=== PATIENT | male | born 1985 | race Two or more races ===

== ENCOUNTER → 2019-01-23 | Day surgery (SDC) | payer OTHER ==
[~2019-01-23] MED LIST: CEFTRIAXONE SOD 1 GM/NS 50 ML 50 ML IV ONE; DEXAMETHASONE SOD PHOS INJ 4 MG/ML VIAL ONE; FENTANYL CITRATE/PF 100MCG/2 ML INJ ONE; IOPAMIDOL 610MG/1ML 300 MG/ML VIAL IV ONE; LIDOCAINE HCL 2% LOCAL INJ 5 ML SDV VIAL INJ ONE; MIDAZOLAM HCL 2 MG/2 ML VIAL ONE; ONDANSETRON HCL INJ 2MG/ML 2ML 2 MG/ML VIAL ONE; PROPOFOL IV EMULSION 10 MG/ML 20 ML VIAL ONE; SEVOFLURANE INHAL SOLN 250 ML PEN BTL ONE
--- NOTE | 2019-01-23 13:19 | Diagnostic Imaging Report ---
Exam: KUB - 2 views Clinical History: Pre-op for renal stone. Comparison: None. Findings: Bowel gas partially obscures visualization of the kidneys. There is a 9 mm calcification adjacent to the right L3 transverse process. There is a 3 mm calcification projecting over the left mid kidney and a 3 mm calcification projecting over the left lower kidney. Nonobstructive bowel gas pattern. No acute osseous abnormality. Impression: A 9 mm calcification adjacent to the right L3 transverse process could represent a ureteral stone in the appropriate clinical setting. Calcifications measuring 3 mm overlying the left mid and lower kidney may represent stones. Signed by: Dr. Herlinda Cramer MD on 01/23/2019 1:16 PM
[2019-01-23 14:40] VITALS: BP 135/93
--- NOTE | 2019-01-23 23:30 | Operative Report ---
DATE OF PROCEDURE: 01/23/2019 SURGEON: Juwan Godinez MD PREOPERATIVE DIAGNOSIS: Right ureteral calculus. POSTOPERATIVE DIAGNOSIS: Right ureteral calculus. PROCEDURES: 1. Staged right-sided shock-wave lithotripsy. 2. Supervision of fluoroscopy. ANESTHESIA: General. ESTIMATED BLOOD LOSS: Minimal. COMPLICATIONS: None. INDICATIONS: Mr. Drew is a very pleasant 27-[id number]-uyh-male with a history of right ureteral calculus. He and I had a long discussion regarding the alternatives, the risks and benefits, including doing nothing, stent placement, shock wave lithotripsy, percutaneous surgery, open surgery. The patient understands the options, alternatives, the risks and benefits, and elected to proceed with shock-wave lithotripsy. Should this fail will stent at later time. he had elected to proceed. PROCEDURE IN DETAIL: After informed consent was obtained, the patient was taken to the operating suite, placed supine on the operating table, underwent general anesthesia by the service. The stone was localized in the xyz plane. A total 3000 shocks were delivered to the stone. The patient tolerated the procedure well and was transported to the recovery room in excellent condition. No complications noted Juwan Godinez MD ES/MODL /[id number] MTDD
== END | disposition home or self-care (01) ==
LOC: OR 11:26
PROVIDERS: ATTEND Urology
DX: N20.1 Calculus of ureter (principal); N13.30 Unspecified hydronephrosis; I10 Essential (primary) hypertension
CPT/HCPCS: 50590; 74018; J0696; J1100; J2001; J2250; J2405; J2704

== ENCOUNTER 2019-02-10 22:48 | Inpatient (IN) | payer OTHER ==
[~2019-02-10] VITALS: Ht 167.6 cm; Wt 82.6 kg
--- NOTE | 2019-02-10 22:13 | NUR ---
Received report from Mesha at [facility]. #[phone].
[2019-02-10 22:38] VITALS: BP 121/71
--- NOTE | 2019-02-10 22:38 | NUR ---
Patient arrived to floor via stretcher.
[2019-02-10] MEDS ORDERED: NALOXONE HCL INJ 0.4 MG/ML AMP IV PRN (23:00)
[2019-02-10] MEDS ORDERED: MORPHINE SULFATE 1 MG/ML 30ML PCA IV PRN (23:00)
[2019-02-10] MEDS ORDERED: SODIUM CHLORIDE 0.9% 500ML 500 ML ONE (23:51)
--- NOTE | 2019-02-11 | NUR ---
GARDE MANAGER intact. Patient states no pain. IV to right AC. Continue monitor.
--- NOTE | 2019-02-11 00:20 | NUR ---
Patient started on [employer]CRET[employer] morphine. Bolus of 3mg given and patient tolerated well for pain level of 4 to abdomin.
[2019-02-11 01:51] VITALS: BP 121/71
[2019-02-11 04:48] VITALS: BP 117/63
--- NOTE | 2019-02-11 05:37 | NUR ---
Patient resting quitly with no c/o at this time.
--- NOTE | 2019-02-11 07:06 | NUR ---
Patient c/o nausea. Nothing ordered for nausea. Called Dr Godinez to get orders. Dr refused nausea med due to patients kidney status. Informed patient that Dr will be in to see him soon.
[2019-02-11 08:08] VITALS: BP 111/74
[2019-02-11 08:39] LABS: BASOPHILS # (AUTO) 0.1 (0.0-0.1); BASOPHILS % 0.4 % (0.0-1.0); EOSINOPHILS % 0.3 % (0.0-6.0); HEMATOCRIT 37.3 % (38.2-49.6); HEMOGLOBIN 12.6 g/dL (14.0-18.0); LYMPHOCYTES # (AUTO) 1.8 (1.0-3.2); LYMPHOCYTES % 14.4 % (18.0-39.1); MEAN CORPUSCULAR HEMOGLOBIN 29.9 pg (28-32); MEAN CORPUSCULAR HGB CONC 33.8 g/dL (31-35); MEAN CORPUSCULAR VOLUME 88.4 fL (81-99); MONOCYTES % 7.4 % (4.4-11.3); NEUTROPHILS # (AUTO) 9.9 (2.1-6.9); NEUTROPHILS % 77.2 % (38.7-80.0); PLATELET COUNT 337 x10e3/uL (140-360); RED BLOOD COUNT 4.22 x10e6/uL (4.3-5.7); RED CELL DISTRIBUTION WIDTH 12.4 % (11.7-14.4)
[2019-02-11 08:54] LABS: ALANINE AMINOTRANSFERASE 30 IU/L (0-55); ALBUMIN 3.6 g/dL (3.5-5.0); ALBUMIN/GLOBULIN RATIO 1.1 (0.8-2.0); ALKALINE PHOSPHATASE 60 IU/L (40-150); ANION GAP 11.5 mmol/L (8-16); BLOOD UREA NITROGEN 17 mg/dL (7-26); BUN/CREATININE RATIO 14 (6-25); CALCIUM 8.7 mg/dL (8.4-10.2); CARBON DIOXIDE 27 mmol/L (22-29); CHLORIDE 107 mmol/L (98-107); CREATININE, SERUM 1.19 mg/dL (0.72-1.25); EST GLOMERULAR FILTRATION RATE > 60 ML/MIN (60-); GLUCOSE 103 mg/dL (74-118); POTASSIUM 4.5 mmol/L (3.5-5.1); SODIUM 141 mmol/L (136-145)
[2019-02-11] MEDS ORDERED: IOPAMIDOL 610MG/1ML 300 MG/ML VIAL IV ONE (11:16)
[2019-02-11] MEDS ORDERED: MIDAZOLAM HCL 2 MG/2 ML VIAL ONE (14:55)
[2019-02-11] MEDS ORDERED: FENTANYL CITRATE/PF 100MCG/2 ML INJ ONE (14:55)
[2019-02-11 16:29] VITALS: BP 138/83
[2019-02-11] MEDS ORDERED: ACETAMINOPHEN/CODEINE 300MG - 30MG TAB PO PRN (17:15)
[2019-02-11] MEDS: CEFTRIAXONE SOD 1 GM/NS 50 ML 50 ML IV SCH (17:39)
[2019-02-11] MEDS ORDERED: SEVOFLURANE INHAL SOLN 250 ML PEN BTL ONE (18:10)
[2019-02-11] MEDS ORDERED: METOCLOPRAMIDE HCL 10 MG/2ML VIAL ONE (18:10)
[2019-02-11] MEDS ORDERED: LIDOCAINE HCL 2% LOCAL INJ 5 ML SDV VIAL INJ ONE (18:10)
[2019-02-11] MEDS ORDERED: ONDANSETRON HCL INJ 2MG/ML 2ML 2 MG/ML VIAL ONE (18:10)
[2019-02-11] MEDS ORDERED: DEXAMETHASONE SOD PHOS INJ 4 MG/ML VIAL ONE (18:10)
[2019-02-11] MEDS ORDERED: CEFTRIAXONE SOD 1 GM VIAL ONE (18:10)
[2019-02-11] MEDS ORDERED: PROPOFOL IV EMULSION 10 MG/ML 20 ML VIAL ONE (18:10)
[2019-02-11] MEDS ORDERED: FAMOTIDINE 20 MG/2 ML VIAL IV ONE (18:10)
[2019-02-11] MEDS ORDERED: MORPHINE SULFATE INJ 4 MG/ML INJ 1ML IV ONE (19:35)
[2019-02-11 20:32] VITALS: BP 137/91
[2019-02-11 21:00] VITALS: BP 137/91
--- NOTE | 2019-02-11 21:00 | NUR ---
ASSESSMENT DONE.AMBULATES.VOIDED.BLOODY URINE NOTED.RESTING COMFORTABLY IN THE BED.PHONE AND CALL LIGHT WITHIN REACH.
[2019-02-12 00:23] VITALS: BP 124/80
--- NOTE | 2019-02-12 03:01 | NUR ---
RESTING QUIETLY IN THE BED.NO PAIN VOICED.
[2019-02-12 04:00] VITALS: BP 109/60
[2019-02-12] MEDS: CEFTRIAXONE SOD 1 GM/NS 50 ML 50 ML IV SCH (05:35)
--- NOTE | 2019-02-12 06:32 | NUR ---
DARK RICKY COLORED URINE VOIDED.NO PAIN VOICED.
--- NOTE | 2019-02-12 06:59 | NUR ---
REPORT GIVEN TO THE ONCOMING RN.WALKING ROUNDS DONE.STABLE CONDITION.
--- NOTE | 2019-02-12 07:25 | NUR ---
Rcvd patient in report this am. Patient is asleep in bed at this time. No s/s of distress noted
[2019-02-12 07:54] VITALS: BP 152/97
--- NOTE | 2019-02-12 08:35 | NUR ---
IV removed at this time. Tip in tact. Pressure dressing applied.
[2019-02-12] MEDS ORDERED: CEFUROXIME250 MG PO (08:36)
[2019-02-12] MEDS ORDERED: TYLENOL WITH C1 EACH PO (08:37)
[2019-02-12 08:48] VITALS: BP 152/97
--- NOTE | 2019-02-12 09:07 | NUR ---
Patient is AAox3. patient is post op stent placement for kidney stones. No c/o pain at this time. Lung martin clear to auscultation. Bowel sounds present x4. Ambulates on his own with no s/s of distress noted
--- NOTE | 2019-02-12 09:25 | NUR ---
Patient discharged from facility to home. Patient assisted out via staff. Refused wheelchair assistance but staff ambulated with him. Reviewed discharge paperwork, follow up appts and RX's given.
--- NOTE | 2019-02-12 16:32 | Discharge Summary ---
ADMITTING DIAGNOSIS: Ureterolithiasis. DISCHARGE DIAGNOSIS: Ureterolithiasis. PROCEDURES: Cystoscopy, retrograde pyelogram, stent placement. HOSPITAL COURSE: The patient was admitted to the hospital. History and physical examination consisting of right renal colic, was found to have an obstructing 1 cm right ureteral stone. He underwent stent placement for postoperative pain control. Concomitant factors were leukocytosis, hypotension, hypertension, colic, hematuria. DISPOSITION: He is discharged to home on a regular diet. Light activity. DISCHARGE MEDICATIONS: Per reconciliation sheet. FOLLOWUP: He will follow up in two weeks for definitive management of his ureteral calculi. MD SHEILA De/MODL /[id number]
--- NOTE | 2019-02-12 23:44 | Operative Report ---
DATE OF PROCEDURE: 02/11/2019 SURGEON: Juwan Godinez MD PREOPERATIVE DIAGNOSES: 1. Right-sided hydronephrosis. 2. Microscopic hematuria. POSTOPERATIVE DIAGNOSES: 1. Right-sided hydronephrosis. 2. Microscopic hematuria. PROCEDURES: 1. Cystourethroscopy with left ureteral catheterization and left retrograde pyelogram (separate procedure for diagnosis of microscopic hematuria). 2. Cystourethroscopy with insertion of right indwelling stent (entirely separate procedure) for right hydronephrosis. 3. Supervision on fluoroscopy. 4. Interpretation of retrograde pyelography. ANESTHESIA: General. ESTIMATED BLOOD LOSS: Minimal. COMPLICATION: None. INDICATION: Mr. Drew is a very pleasant 33-year-old male with a 1 cm obstructing stone. I had a long discussion about alternatives, risks, and benefits, including doing nothing, stent placement, percutaneous surgery, and open surgery. He voiced understanding of the options, the alternatives, the risks, and benefits and elected to proceed. He voiced explicit understanding that stent is a temporary indwelling device and it must be removed Failure to do so could lead to encrustation, infection, inflamation, atrophy loss of kidney renal failure even . He elects to proceed. PROCEDURE IN DETAIL: After informed consent was obtained, the patient was taken to the operative suite. He was placed supine on the operating table and he underwent general anesthesia by Anesthesia Service. Placed in dorsal lithotomy position. Sterilely prepped and draped in a standard fashion for cystoscopy. A 21-Surinamese cystoscope inserted per urethra. Normal urethra was noted. UOs catheterized with a 5-Surinamese open-ended catheter. Retrograde pyelogram was performed, revealing 1 cm distal ureteral calculus on the right side. Normal left retrograde pyelogram. Ureteral stent was deployed in the right with coil in the renal pelvis and a coil in the bladder. The patient's bladder was drained. He was awakened from anesthesia and transported to the recovery room in excellent condition. Supervision of fluoroscopy, interpretation of retrograde pyelography: I was present for the entire procedure and I supervised the use of fluoroscopy as no radiologist was present. Attention was turned towards the left and right ureters, which were catheterized with a 5-Surinamese open-ended catheter On the right of over 1 cm distal ureteral calculus with proximal hydronephrosis. Left normal. Postoperative views in the right side revealed stent in adequate position. MD SHEILA De/XAVIER /[id number] [place]
== END 2019-02-12 09:25 | disposition home or self-care (01) | DRG 661 ==
LOC: MED/SURG 22:48
PROVIDERS: ADMIT Urology; ATTEND Urology
PROC: 0T778ZZ Dilation of Left Ureter, Via Natural or Artificial Opening Endoscopic (ICD-10-PCS; principal; 2019-02-12)
PROC: 0T778ZZ Dilation of Left Ureter, Via Natural or Artificial Opening Endoscopic (ICD-10-PCS; 2019-02-12)
PROC: BT141ZZ Fluoroscopy of Kidneys, Ureters and Bladder using Low Osmolar Contrast (ICD-10-PCS; 2019-02-12)
DX: N13.2 Hydronephrosis with renal and ureteral calculous obstruction (principal); D72.829 Elevated white blood cell count, unspecified; I10 Essential (primary) hypertension; R31.29 Other microscopic hematuria; I95.9 Hypotension, unspecified; N23 Unspecified renal colic
CPT/HCPCS: 36415; 74420; 80053; 85025; 87086; C1758; C2617; J0696; J1100; J2001; J2250; J2270; J2405; J2765; J7040

== ENCOUNTER → 2019-02-27 | Day surgery (SDC) | payer OTHER ==
[~2019-02-27] MED LIST changes: +CEFUROXIME250 MG PO; +TYLENOL WITH C1 EACH PO
--- OUTSIDE RECORDS SUMMARY | 2019-02-27 05:19 | XMS REPORT ---
Author Author [facility] Address Unknown Phone Unavailable Care Team Providers Care Arranger Assembler Name Role Phone CHAVA DURÁN Unavailable Unavailable Problems This patient has no known problems. Allergies, Adverse Reactions, Alerts This patient has no known allergies or adverse reactions. Medications This patient has no known medications. Results Test Description Test Time Test Comments Text Results Atomic Results Result Comments ABDOMEN-1VIEW (KUB) 2019-01-23 13:12:00 [place] [address] Patient Name: BRANDON GERARD MR #: [id number] : 1985 Age/Sex: 33/M Req #: [id number] Adm Physician: Ordered by: CHAVA DURÁN MD Report #: [id number] Location: OR Room/Bed: Procedure: [id number] DX/ABDOMEN-1VIEW (KUB) Exam Date: 01/23/19 Exam Time: 1215 REPORT STATUS: Signed Exam: KUB - 2 views Clinical History: Pre-op for r enal stone. Comparison: None. Findings: Bowel gas partially obscures visualization of the kidneys. There is a 9 mm calcification adjacent to the right L3 transverse process. There is a 3 mm calcification projecting over the left mid kidney and a 3 mm calcification projecting over the left lower kidney. Nonobstructive bowel gas pattern. No acute osseous abnormality. Impression: A 9 mm calcification adjacent to the right L3 transverse process could represent a ureteral stone in the appropriate clinical setting. Calcifications measuring 3 mm overlying the left mid and lower kidney may represent stones. Signed by: Dr. Shmuel Cheng MD on 01/23/2019 1:16 PM Dictated By: SHMUEL CHENG MD 1315 Transcribed By: SHARLA on 01/23/19 1316 COPY TO: CHAVA DURÁN MD
--- OUTSIDE RECORDS SUMMARY | 2019-02-27 05:19 | XMS REPORT | Clinical Summary ---
Author Author [facility] Address Unknown Phone Unavailable Care Team Providers Care Law Instructor Name Role Phone System, Provider Not In MD PCP Unavailable Allergies No Known Allergies Medications End Date Status Medication Sig Dispensed Refills Start Date 10/31/2018 acetaminophen-codeine Take 1-2 15 tablet 0 (TYLENOL WITH CODEINE #3) tablets by 8 300-30 mg per tablet mouth every 6 (six) hours as needed for moderate pain for up to 3 days. 11/27/2018 ondansetron ODT (ZOFRAN Take 1 tablet 15 tablet 0 ODT) 4 MG disintegrating (4 mg total) 8 tablet by mouth every 8 (eight) hours as needed for nausea or vomiting for up to 30 days. 11/04/2018 ciprofloxacin (CIPRO) 500 Take 1 tablet 14 tablet 0 MG tablet (500 mg 8 total) by mouth 2 (two) times a day for 7 days. 11/04/2018 tamsulosin (FLOMAX) 0.4 Take 1 7 capsule 0 mg capsule capsule (0.4 8 mg total) by mouth daily for 7 days. Active Problems Not on file Encounters Care Team Description Date Type Specialty Jakob Matt MD Teter, Alondra Funes PA-C Nephrolithiasis (Primary Dx) 10/28/2018 Emergency Emergency Medicine 10/28/2018 Travel after 02/26/2018 Social History Date Tobacco Use Types Packs/Day Years Used Light Tobacco Smoker Cigarettes Smokeless Tobacco: Never Used Comments: "ocassional" Alcohol Use Drinks/Week oz/Week Comments No Sex Assigned at Date Recorded Not on file Industry Job Start Date Occupation Not on file Not on file Not on file Travel End Travel History Travel Start No recent travel history available. Last Filed Vital Signs Time Taken Vital Sign Reading 10/28/2018 11:50 AM MEDICAL REFERRAL COORDINATOR Blood Pressure 134/83 10/28/2018 11:50 AM MEDICAL REFERRAL COORDINATOR Pulse 68 10/28/2018 11:50 AM MEDICAL REFERRAL COORDINATOR Temperature 36.7 C (98 F) 10/28/2018 11:50 AM MEDICAL REFERRAL COORDINATOR Respiratory Rate 15 10/28/2018 11:50 AM MEDICAL REFERRAL COORDINATOR Oxygen Saturation 98% - Inhaled Oxygen - Concentration 10/28/2018 10:23 AM MEDICAL REFERRAL COORDINATOR Weight 78.5 kg (173 lb) 10/28/2018 10:23 AM MEDICAL REFERRAL COORDINATOR Height 167.6 cm (5' 6") 10/28/2018 10:23 AM MEDICAL REFERRAL COORDINATOR Body Mass Index 27.92 Plan of Treatment Health Maintenance Due Date Last Done Comments INFLUENZA VACCINE 06/27/2018 Procedures Comments Procedure Name Priority Date/Time Associated Diagnosis CT RENAL STONE PROTOCOL STAT 10/28/2018 10:48 AM MEDICAL REFERRAL COORDINATOR ESTIMATED GFR STAT 10/28/2018 10:29 AM MEDICAL REFERRAL COORDINATOR URINALYSIS SCREEN AND STAT 10/28/2018 MICROSCOPY, WITH REFLEX 10:29 AM MEDICAL REFERRAL COORDINATOR TO CULTURE COMPREHENSIVE METABOLIC STAT 10/28/2018 PANEL 10:29 AM MEDICAL REFERRAL COORDINATOR HC COMPLETE BLD COUNT STAT 10/28/2018 W/AUTO DIFF 10:29 AM MEDICAL REFERRAL COORDINATOR GRAM STAIN STAT 10/28/2018 10:29 AM MEDICAL REFERRAL COORDINATOR URINE CULTURE STAT 10/28/2018 10:29 AM MEDICAL REFERRAL COORDINATOR after 02/26/2018 Results * CT Renal Stone Protocol (10/28/2018 10:48 AM MEDICAL REFERRAL COORDINATOR) Narrative Performed At EXAMINATION:CT RENAL STONE PROTOCOL [facility] CLINICAL HISTORY:Flank painstone disease suspected TECHNIQUE:Multiple axial CT images of the abdomen and pelvis are obtained without the use of intravenous contrast. Coronal and sagittal 3-D reconstructions are obtained. CT scans are performed using radiation dose reduction techniques.Technical factors are evaluated and adjusted to ensure appropriate moderation of exposure.Automated dose management technology is applied to adjust radiation exposure while achieving a diagnostic quality image. COMPARISON:May 2015 FINDINGS: Abdomen: The evaluation of the solid organs is limited without the use of intravenous contrast. The visualized lower lung zones are clear. The gallbladder does not have any wall thickening. There is no pericholecystic fluid.. The CT appearance of the liver, spleen, pancreas and adrenal glands is unremarkable . The abdominal aorta has no aneurysmal dilatation. There is no retroperitoneal adenopathy. The left kidney does not have any stones or any hydronephrosis. The right kidney demonstrates moderate hydronephrosis. Perinephric stranding is present. There are no stones seen within the right kidney. There is a 8 mm stone seen within the proximal right ureter. CT Pelvis: There is no evidence of any pneumoperitoneum. The appendix is unremarkable. The evaluation of the GI tract is limited without any oral contrast. The colon does not have any focal inflammatory change. There is no bowel wall thickening. The bladder does not demonstrate any masses. IMPRESSION: 1. There is a 8 mm stone seen within the proximal right ureter. 2. The right kidney has moderate hydronephrosis. There are no stones seen within the right kidney. 3. The left kidney does not have any stones or any hydronephrosis. 4. The appendix is unremarkable. 5. There is no bowel obstruction nor any dilated loops of bowel. [id number] Procedure Note Hm Interface, Radiology Results Incoming - 10/28/2018 11:15 AM MEDICAL REFERRAL COORDINATOR EXAMINATION: CT RENAL STONE PROTOCOL CLINICAL HISTORY: Flank pain stone disease suspected TECHNIQUE: Multiple axial CT images of the abdomen and pelvis are obtained without the use of intravenous contrast. Coronal and sagittal 3-D reconstructions are obtained. CT scans are performed using radiation dose reduction techniques. Technical factors are evaluated and adjusted to ensure appropriate moderation of exposure. Automated dose management technology is applied to adjust radiation exposure while achieving a diagnostic quality image. COMPARISON: May 2015 FINDINGS: Abdomen: The evaluation of the solid organs is limited without the use of intravenous contrast. The visualized lower lung zones are clear. The gallbladder does not have any wall thickening. There is no pericholecystic fluid.. The CT appearance of the liver, spleen, pancreas and adrenal glands is unremarkable . The abdominal aorta has no aneurysmal dilatation. There is no retroperitoneal adenopathy. The left kidney does not have any stones or any hydronephrosis. The right kidney demonstrates moderate hydronephrosis. Perinephric stranding is present. There are no stones seen within the right kidney. There is a 8 mm stone seen within the proximal right ureter. CT Pelvis: There is no evidence of any pneumoperitoneum. The appendix is unremarkable. The evaluation of the GI tract is limited without any oral contrast. The colon does not have any focal inflammatory change. There is no bowel wall thickening. The bladder does not demonstrate any masses. IMPRESSION: 1. There is a 8 mm stone seen within the proximal right ureter. 2. The right kidney has moderate hydronephrosis. There are no stones seen within the right kidney. 3. The left kidney does not have any stones or any hydronephrosis. 4. The appendix is unremarkable. 5. There is no bowel obstruction nor any dilated loops of bowel. [id number] Performing Organization Address City/State/Zipcode Phone Number [address] [address] [place] [address] * Urinalysis screen and microscopy, with reflex to culture (10/28/2018 10:29 AM MEDICAL REFERRAL COORDINATOR) Specimen site Catheterized [facility] Color, UA Yellow [facility] Appearance, UA Cloudy [facility] Specific gravity, UA 1.024 1.001 - 1.035 [facility] pH, UA 7.0 5.0 - 8.5 [facility] Protein, UA 1+ (A) Negative [facility] Glucose, UA Negative Negative [facility] Ketones, UA Negative Negative [facility] Bilirubin, UA Negative Negative [facility] Blood, UA Small (A) Negative [facility] Nitrite, UA Negative Negative [facility] Urobilinogen, UA Negative <2.0 [facility] Leukocyte esterase, UA Negative Negative [facility] Epithelial cells, UA Few /HPF [facility] WBC, UA 6-10 (H) 0 - 1 /HPF [facility] RBC, UA 11-20 (H) 0 - 5 /HPF [facility] Bacteria, UA None seen None seen [facility] Yeast, UA None seen [facility] Yeast with pseudohyphae, None seen [facility] Amorphous crystals Few [facility] Hyaline casts, UA 3-5 /LPF [facility] Specimen Urine Performing Organization Address [facility] Phone Number [facility] DEPARTMENT [address] [place] [address] PATHOLOGY AND GENOMIC MEDICINE [address] * Estimated GFR (10/28/2018 10:29 AM MEDICAL REFERRAL COORDINATOR) Estimated GFR 86 mL/min/1.73 m2 [facility] Comment: [facility] CatergoryUnitsInte rpretation G1 >=90 Normal or high G2 60-89Mildly decreased [id number] Mildly to moderately decreased [id number] Moderately to severely decreased G4 15-29Severely decreased G5 <15Kidney failure The eGFR was calculated using the Chronic Kidney Disease Epidemiology Collaboration (CKD-EPI) equation. Interpretation is based on recommendations of the National Kidney Foundation-Kidney Disease Outcomes Quality Initiative (NKF-KDOQI) published in 2014. Specimen Plasma specimen Performing Organization Address [facility] Phone Number [address] [place] [address] PATHOLOGY AND GENOMIC MEDICINE [address] * Gram stain (10/28/2018 10:29 AM MEDICAL REFERRAL COORDINATOR) Gram stain result No WBC's or organisms seen. [facility] [place] Comment: HOSPITAL Specimen Information Specimen Source: Urine Specimen Site: Catheterized Specimen Urine - Catheterized Performing Organization Address [facility]/Zipcode Phone Number [facility] [place] [address] PATHOLOGY AND GENOMIC MEDICINE [address] * CBC with platelet and differential (10/28/2018 10:29 AM MEDICAL REFERRAL COORDINATOR) WBC 13.89 (H) 4.50 - 11.00 k/uL [facility] RBC 4.85 4.40 - 6.00 m/uL [facility] HGB 14.3 14.0 - 18.0 g/dL [facility] HCT 42.7 41.0 - 51.0 % [facility] MCV 88.0 82.0 - 100.0 fL [facility] MCH 29.5 27.0 - 34.0 pg [facility] MCHC 33.5 31.0 - 37.0 g/dL [facility] RDW - SD 38.5 37.0 - 55.0 fL [facility] MPV 8.7 (L) 8.8 - 13.2 fL [facility] Platelet count 350 150 - 400 k/uL [facility] Nucleated RBC 0.00 /100 WBC [facility] Neutrophils 70.2 (H) 39.0 - 69.0 % [facility] Lymphocytes 21.6 (L) 25.0 - 45.0 % [facility] Monocytes 6.7 0.0 - 10.0 % [facility] Eosinophils 0.8 0.0 - 5.0 % [facility] Basophils 0.4 0.0 - 1.0 % [facility] Specimen Blood Performing Organization Address City/[facility] Phone Number [facility] DEPARTMENT [id number] [place] [address] [place] [address] PATHOLOGY AND GENOMIC MEDICINE [address] * Urine culture (10/28/2018 10:29 AM MEDICAL REFERRAL COORDINATOR) Urine culture isolate Mixed lilo <=10-3 col/cc [facility] Comment: HOSPITAL Specimen Information Specimen Source: Urine Specimen Site: Catheterized Specimen Urine - Catheterized Performing Organization Address City/[facility] Phone Number [facility] [place] [address] PATHOLOGY AND GENOMIC MEDICINE [address] * Comprehensive metabolic panel (10/28/2018 10:29 AM MEDICAL REFERRAL COORDINATOR) Sodium 138 135 - 148 mEq/L [facility] Potassium 4.2 3.5 - 5.0 mEq/L [facility] Chloride 102 98 - 112 mEq/L [facility] CO2 24 24 - 31 mEq/L [facility] Anion gap 12@ANIO 7 - 15 mEq/L [facility] BUN 24 (H) 6 - 20 mg/dL [facility] Creatinine 1.10 0.70 - 1.20 mg/dL [facility] Glucose 108 (H) 65 - 99 mg/dL [facility] Calcium 10.0 8.3 - 10.2 mg/dL [facility] Protein 8.4 (H) 6.3 - 8.3 g/dL [facility] Comment: [facility] Mentcle 4.6-7.0 g/dL 1 week 4.4-7.6 g/dL 7 months-1year 5.1-7.3 g/dL 1-2 years5.6-7 .5 g/dL >3 years6.0-8 .0 g/dL 18-150 6.3-8.3 g/dL Albumin 4.9 3.5 - 5.0 g/dL [facility] A/G ratio 1.4 0.7 - 3.8 [facility] Alkaline phosphatase 72 40 - 129 U/L [facility] AST 20 10 - 50 U/L [facility] ALT 18 5 - 50 U/L [facility] Total bilirubin 0.7 0.0 - 1.2 mg/dL [facility] Specimen Plasma specimen Performing Organization Address City/State/Zipcode Phone Number [facility] DEPARTMENT [address] [place] [address] PATHOLOGY AND GENOMIC MEDICINE [facility] [address] [place] [id number] [facility] after 02/26/2018 Advance Directives Patient has advance care planning documents on file. For more information, jahaira woody contact: D[facility] [place] [address] [place] [address]
[2019-02-27 08:20] VITALS: BP 121/85
--- NOTE | 2019-02-28 15:24 | Operative Report ---
DATE OF PROCEDURE: 02/27/2019 SURGEON: Juwan Godinez MD PREOPERATIVE DIAGNOSES: 1. Right ureteral calculus. 2. Right hydronephrosis. 3. Right indwelling stent. POSTOPERATIVE DIAGNOSES: 1. Right ureteral calculus. 2. Right hydronephrosis. 3. Right indwelling stent. PROCEDURES: 1. Cystourethroscopy with complicated removal of right indwelling stent (entirely separate procedure for diagnosis of right indwelling stent). 2. Right-sided ureteroscopy with laser lithotripsy (entirely separate procedure for ridding the patient of large obstructing proximal right ureteral calculi). 3. Supervision of ureteroscopy. 4. Supervision of fluoroscopy for stent removal portions. 5. Interpretation of anterior pyelography. ANESTHESIA: General. ESTIMATED BLOOD LOSS: Minimal. COMPLICATIONS: None. INDICATIONS FOR PROCEDURE: Mr. Drew is a very pleasant 33-year-old male with a history of obstructing ureteral calculi and ureteral stricture, now presenting for ureteroscopy and stent removal. He voiced understanding of the options, alternatives, risks and benefits and he elected to proceed. PROCEDURE IN DETAIL: After informed consent was obtained, the patient was taken to the operative suite. He was placed supine on the operating table, he underwent general anesthesia by the anesthesia service. He was placed in the dorsal lithotomy position, sterilely prepped and draped in a standard fashion for cystoscopy. A 21-Macanese cystoscope was inserted per urethra. Normal urethra was noted. The stent was seen across the ureteral orifice and was grasped. An attempt was made to insert a guidewire, but this has failed. Guidewire was inserted under direct vision and seen to coil at the level of the renal pelvis on the fluoroscopy. The ureteroscope was driven to level of obstructing ureteral stone. Fluoroscopic image was taken, image #1. Utilizing the 365 micron laser fiber, the 6-7 mm stone was blasted into powder. There were no fragments remaining that could be seen fluoroscopically. A retrograde pyelogram was again performed showing prompt drainage. The stone was removed, the ureteroscope was withdrawn, the safety wire was removed, the bladder was drained and the patient was awakened from anesthesia and transported to recovery room in excellent condition. Supervision of fluoroscopy, interpretation of retrograde pyelography: I was present for the entire procedure and I supervised the use of fluoroscopy as no radiologist was present. Attention was turned towards the right ureteral orfice which was catheterized with a ureteroscope. A retrograde pyelogram was performed revealing dilated collecting system and interim removal of ureteral calculus and stent IMPRESSION: dilated collecting system and interim removal of ureteral calculus and stent MD SHEILA De/MODMyles /[id number] MTDD
== END | disposition home or self-care (01) ==
LOC: OR 05:15
PROVIDERS: ATTEND Urology
DX: N13.2 Hydronephrosis with renal and ureteral calculous obstruction (principal); R31.29 Other microscopic hematuria; I10 Essential (primary) hypertension; K21.9 Gastro-esophageal reflux disease without esophagitis; Z87.442 Personal history of urinary calculi; F17.210 Nicotine dependence, cigarettes, uncomplicated; F41.9 Anxiety disorder, unspecified; Z46.6 Encounter for fitting and adjustment of urinary device
CPT/HCPCS: 52353; 74420; J0696; J1100; J2001; J2250; J2405; J2704; Q9967